=== PATIENT | male | born 1940 | race Caucasian/White ===

== ENCOUNTER 2018-07-19 23:40 | Inpatient (IN) | payer MEDICARE, BC ==
[~2018-07-19] VITALS: Ht 167.6 cm; Wt 92.1 kg
--- NOTE | 2018-07-20 00:20 | NUR ---
HARDIK FELIPE FROM [facility]. AAOX4. NAD, BREATHING EVEN AND UNLBAORED. AMBULATORY. C/O DEPRESSION. PT REPORTS HAVING OVERDOSE OF NORCO 2 WEEKS AGO. DENIES IVNITA HARPER. PT VOLUNTARILY WANT TO HAVE PSYCH EVAL. TO ER BED 2. AWAITING FOR MD AND PSYCH CONSULT.
--- NOTE | 2018-07-20 00:25 | NUR ---
CERTIFIED WELLNESS PROGRAM COORDINATOR AT BEDSIDE FOR BLOOD DRAW
[2018-07-20 00:30] LABS: BASOPHILS # (AUTO) 0.1 /CMM (0.0-0.2); BASOPHILS % (AUTO) 0.6 % (0.0-2.0); EOSINOPHILS % (AUTO) 1.2 % (0.0-6.0); HEMATOCRIT 35 % (39-51); HEMOGLOBIN 11.9 g/dL (13.5-17.5); LYMPHOCYTES # (AUTO) 3.2 /CMM (0.8-4.8); LYMPHOCYTES % (AUTO) 25.9 % (20.0-44.0); MEAN CORPUSCULAR HGB CONC 34 g/dl (31.0-36.0); MEAN CORPUSCULAR VOLUME 91 fL (80-96); MONOCYTES # (AUTO) 0.7 /CMM (0.1-1.30); NEUTROPHILS # (AUTO) 8.1 /CMM (1.8-8.9); NEUTROPHILS % (AUTO) 66.3 % (43.0-81.0); PLATELET COUNT (AUTO) 423 /CMM (150-450); RED BLOOD CELL COUNT(AUTO) 3.89 MIL/uL (4.5-6.0); WHITE BLOOD COUNT (AUTO) 12.2 K/uL (4.3-11.0)
[2018-07-20 00:38] LABS: CARBON DIOXIDE 33 mmol/L (21-32); CHLORIDE 103 mmol/L (98-107); CREATININE 0.9 mg/dL (0.6-1.3); GLUCOSE 109 mg/dL (74-106); POTASSIUM 4.1 mmol/L (3.5-5.1); SODIUM SERUM 141 mmol/L (136-145); UREA NITROGEN, BLOOD 29 mg/dL (7-18)
[2018-07-20 00:51] LABS: ACETAMINOPHEN 0 ug/ml (10-30); ALANINE AMINOTRANSFERASE 21 U/L (12-78); ALBUMIN 3.6 g/dL (3.4-5.0); ALCOHOL, BLOOD < 3 mg/dL (0-0); ALKALINE PHOSPHATASE 98 U/L (46-116); ASPARTATE AMINOTRANSFERASE 10 U/L (15-37); BILIRUBIN,DIRECT 0.1 mg/dL (0.0-0.2); BILIRUBIN,TOTAL 0.3 mg/dL (0.2-1.0); SALICYLATE 2.3 mg/dL (2.8-20.0); TOTAL PROTEIN, SERUM 7.1 g/dL (6.4-8.2)
--- NOTE | 2018-07-20 01:46 | NUR ---
REPORT GIVEN TO ALAN MENDENHALL. PT GOING TO [facility].
--- NOTE | 2018-07-20 01:52 | NUR ---
PT BEING TRANSPORT TO [facility] G[facility] WITH EMT. PT IS INSTABLE CONDITION FOR TRANSPORT.
--- NOTE | 2018-07-20 01:55 | NUR ---
GPS-AUTO APPRAISER NOTES: ADMITTED A 78-YR OLD, MALE, FROM [facility]. ADMITTED ON VOLUNTARY STATUS. UPON FACE TO FACE EVALUATION PATIENT PRESENTS ALERT AND ORIENTED X3, DEPRESSED, AND FLAT AFFECT. PATIENT AMBULATES INDEPENDENTLY. DENIES SI/HI OR HALLUCINATIONS AT THIS TIME. IN NO APPARENT DISTRESS NOTED. NO S/SX OF PAIN OR DISCOMFORT NOTED. PT. IS UNDER THE PSYCHIATRIC CARE OF DR. SERVIN ORDERS OBTAINED, AND UNDER THE MEDICAL CARE OF DR. SINGH, NOTIFIED OF PT'S ADMISSION AND MEDS TO BE RECONCILED. SKIN AND BODY ASSESSMENT DONE. SKIN IS INTACT. BELONGINGS AND CONTRABAND CHECKED AND RECORDED. PATIENT'S RIGHTS DISCUSSED, GUIDE TO PRESCRIPTION MEDS HANDBOOK PROVIDED. BED LOCKED AND PLACED ON LOWEST POSITION TO MAINTAIN SAFETY. FALL PRECAUTIONS IMPLEMENTED. WILL CONTINUE TO MONITOR FOR MOOD, SAFETY AND BEHAVIOR.
[2018-07-20 02:00] VITALS: BP 150/70
[2018-07-20] MEDS ORDERED: ACETAMINOPHEN 325 MG TABLET PO PRN (03:00)
[2018-07-20] MEDS ORDERED: MAG HYDROX/AL HYDROX/SIMETH 30 ML UDC PO PRN (03:00)
[2018-07-20] MEDS ORDERED: MAGNESIUM HYDROXIDE 30 ML UDC PO PRN (03:00)
[2018-07-20] MEDS ORDERED: MIRT15TA7 PO (03:25)
[2018-07-20] MEDS ORDERED: ASPI-1169 PO (03:25)
[2018-07-20] MEDS ORDERED: AMLO10TA7 PO (03:25)
[2018-07-20] MEDS ORDERED: ATOR10TA PO (03:25)
[2018-07-20] MEDS ORDERED: ATOR20TA PO (03:25)
[2018-07-20] MEDS ORDERED: DULO30CA2 PO (03:25)
[2018-07-20] MEDS ORDERED: QUET100T PO (03:25)
[2018-07-20] MEDS ORDERED: BUDE0.5A4 IH (04:58)
[2018-07-20] MEDS ORDERED: CLON0.1T PO (04:58)
[2018-07-20] MEDS ORDERED: DOCU100C36 PO (04:58)
[2018-07-20] MEDS ORDERED: IPRA3AMP23 IH (04:58)
[2018-07-20] MEDS ORDERED: METO-357 PO (04:58)
[2018-07-20] MEDS ORDERED: DIPH50CA4 PO (04:58)
[2018-07-20] MEDS ORDERED: CHOL50002 PO (04:58)
[2018-07-20] MEDS ORDERED: CLOP75TA15 PO (04:58)
[2018-07-20] MEDS ORDERED: TRAZ-182 PO (04:58)
[2018-07-20] MEDS ORDERED: BISA10SU8 RC (04:58)
[2018-07-20] MEDS ORDERED: ALBU1.257 IH (04:58)
[2018-07-20] MEDS ORDERED: CITA20SO PO (04:58)
[2018-07-20] MEDS ORDERED: OLAN10TA3 PO (04:58)
[2018-07-20] MEDS ORDERED: LOSA25TA27 PO (04:58)
--- NOTE | 2018-07-20 05:10 | NUR ---
RN-NOTE: CALLED TO EPIC GROUP SPOKE WITH DR. SINGH, SHE STATED MEDICATION RECONCILIATION TO BE DONE THIS MORNING. DR. SINGH MADE AWARE OF PT'S DIAGNOSIS ACUTE VIRAL UPPER RESPIRATORY INFECTION, RESPIRATORY PCR PANEL + CORONAVIRUS MD STATED NO TREATMENT TO BE DONE. PT. NOTED O2 SATURATION RANGING FROM 90-91% WITH ORDER OF O2 THERAPY @2LPM VIA NC PRN TO KEEP O2 LEVEL >92%. AND INCENTIVE SPIROMETER AT BEDSIDE. ALL ORDERS NOTED AND CARRIED OUT. PATIENT HAS NO S/SX OF ACUTE RESPIRATORY DISTRESS NOTED. WILL ENDORSED TO DAY SHIFT NURSE FOR CONTINUITY OF CARE. Addendum: 07/20/18 at 0723 by NELL DAY RN ENDORSED TO DAY SHIFT NURSE TO NOTIFY FAMILY (PT'S ALAINA) REGARDING PT'S ADMISSION.
[2018-07-20 08:00] VITALS: BP 130/57
--- NOTE | 2018-07-20 11:08 | NUR ---
CALLED ALAINA WEEMS () AT [phone] AND WAS NOTIFIED ABOUT PTS. ADMISSION.
[2018-07-20] MEDS: LORAZEPAM 0.5 MG TABLET PO PRN (11:26)
[2018-07-20] MEDS ORDERED: CLONIDINE HCL 0.1 MG TABLET PO PRN (14:00)
[2018-07-20] MEDS ORDERED: BISACODYL SUPP (10 MG) 10 MG/SUPP.RECT SUPP.RECT RC PRN (14:00)
[2018-07-20] MEDS ORDERED: ALBUTEROL FS 2.5 MG/0.5 ML VIAL.NEB NEB PRN (14:00)
[2018-07-20] MEDS: DIVALPROEX SODIUM 125 MG CAP.SPRINK PO SCH ×2 (14:15→20:22)
[2018-07-20] MEDS ORDERED: Medication Not On Formulary EA (Ipratropium/Albuterol Sulfate (Duoneb 2.5-0.5 Mg/3 Ml So IH SCH (15:30)
[2018-07-20 16:12] VITALS: BP_SYST 116; BP_SYST 123; BP_DIAS 53; BP_DIAS 55
--- NOTE | 2018-07-20 16:26 | NUR ---
CHADD called the pts , Arlin Page ([phone]), and discussed the pts treatment plan and initial discharge plan to return to his home with a program.
--- NOTE | 2018-07-20 16:27 | NUR ---
Initial Discharge Plan: Pt currently resides at his home located at [address] [place] [address]; [phone]). Pt lives with his , Arlin Page ([phone]). Per pt, he would like to return to his home. SW will work with the MD and the pt regarding appropriate discharge planning. SW will form a safe and proper plan.
[2018-07-20] MEDS: IPRATROPIUM NEB FS 0.5 MG/2.5 ML AMPUL.NEB NEB SCH ×2 (16:48→19:30)
[2018-07-20] MEDS: ALBUTEROL FS 2.5 MG/0.5 ML VIAL.NEB NEB SCH ×2 (16:48→19:30)
[2018-07-20] MEDS: DOCUSATE SODIUM 100 MG CAPSULE PO SCH (17:00)
[2018-07-20 20:00] VITALS: BP 142/67
[2018-07-20] MEDS ORDERED: OLANZAPINE 2.5 MG TABLET PO SCH (20:00)
[2018-07-20] MEDS: LOSARTAN POTASSIUM 25 MG TABLET PO SCH (20:22)
[2018-07-20] MEDS: TEMAZEPAM 7.5 MG CAPSULE PO PRN (20:23)
[2018-07-21 07:46] LABS: BASOPHILS % (AUTO) 0.3 % (0.0-2.0); EOSINOPHILS % (AUTO) 2.2 % (0.0-6.0); HEMATOCRIT 32 % (39-51); HEMOGLOBIN 11.2 g/dL (13.5-17.5); LYMPHOCYTES # (AUTO) 2.2 /CMM (0.8-4.8); LYMPHOCYTES % (AUTO) 23.9 % (20.0-44.0); MEAN CORPUSCULAR HGB CONC 35 g/dl (31.0-36.0); MEAN CORPUSCULAR VOLUME 90 fL (80-96); MONOCYTES # (AUTO) 0.8 /CMM (0.1-1.30); MONOCYTES % (AUTO) 8.5 % (2.0-12.0); NEUTROPHILS # (AUTO) 6.1 /CMM (1.8-8.9); NEUTROPHILS % (AUTO) 65.1 % (43.0-81.0); PLATELET COUNT (AUTO) 385 /CMM (150-450); RED BLOOD CELL COUNT(AUTO) 3.61 MIL/uL (4.5-6.0); WHITE BLOOD COUNT (AUTO) 9.4 K/uL (4.3-11.0)
[2018-07-21 07:47] LABS: ALANINE AMINOTRANSFERASE 16 U/L (12-78); ALKALINE PHOSPHATASE 90 U/L (46-116); ASPARTATE AMINOTRANSFERASE 9 U/L (15-37); BILIRUBIN,TOTAL 0.4 mg/dL (0.2-1.0); CALCIUM, SERUM 9.3 mg/dL (8.5-10.1); CARBON DIOXIDE 28 mmol/L (21-32); CHLORIDE 105 mmol/L (98-107); CREATININE 0.8 mg/dL (0.6-1.3); GLUCOSE 116 mg/dL (74-106); MAGNESIUM 2.3 mg/dL (1.8-2.4); PHOSPHORUS 3.9 mg/dL (2.5-4.9); POTASSIUM 4.1 mmol/L (3.5-5.1); SODIUM SERUM 140 mmol/L (136-145); TOTAL PROTEIN, SERUM 6.1 g/dL (6.4-8.2); UREA NITROGEN, BLOOD 25 mg/dL (7-18)
[2018-07-21 07:51] LABS: CHOLESTEROL 120 mg/dL (<200); HDL CHOLESTEROL 46 mg/dL (40-60); LDL 65 mg/dL (0-99); THYROID STIMULATING HORMONE 1.777 uIU/mL (0.358-3.74); TRIGLYCERIDES 56 mg/dL (30-150)
[2018-07-21 08:00] VITALS: BP 117/73
[2018-07-21] MEDS: ALBUTEROL FS 2.5 MG/0.5 ML VIAL.NEB NEB SCH ×4 (08:25→20:32)
[2018-07-21] MEDS: IPRATROPIUM NEB FS 0.5 MG/2.5 ML AMPUL.NEB NEB SCH ×4 (08:28→20:32)
[2018-07-21] MEDS: CHOLECALCIFEROL 1,000 UNIT TABLET (VIT D3) PO SCH (08:41)
[2018-07-21] MEDS: DOCUSATE SODIUM 100 MG CAPSULE PO SCH ×2 (08:41→17:43)
[2018-07-21] MEDS: ASPIRIN 81 MG TAB.CHEW PO SCH (08:41)
[2018-07-21] MEDS: CLOPIDOGREL BISULFATE 75 MG TABLET PO SCH (08:41)
[2018-07-21] MEDS: DIVALPROEX SODIUM 125 MG CAP.SPRINK PO SCH ×2 (08:41→21:18)
[2018-07-21] MEDS: LOSARTAN POTASSIUM 25 MG TABLET PO SCH ×2 (08:42→21:00)
--- NOTE | 2018-07-21 09:20 | NUR ---
GROUP NOTE: Group was facilitated on 07/20/18 at 2:00pm topic was "discharge planning" S: "This is the first time I come to a hospital like this I wasn't feeling well I think my medication had something to do with it. I have good support at home and I want to return home once I feel I'm better." O: Pt was anxious but was cooperative and maintained good eye contact. Pt asked appropriate questions pertaining to his hold and length of stay. A: Pt expressed concern for his current mental state and gained awareness regarding his 5150 hold. P: pt will continue milieu treatment and medication stabilization.
--- NOTE | 2018-07-21 13:12 | NUR ---
NO SOB, NOTED, PER PT. HE DOESN'T NEED OXYGEN. DR. SERVIN ORDERED TO D/C 1:1
[2018-07-21 14:01] LABS: APPEARANCE,URINE SL CLOUDY (CLEAR); BILIRUBIN,URINE NEGATIVE (NEGATIVE); BLOOD, URINE NEGATIVE Ery/uL (NEGATIVE); COLOR,URINE YELLOW (YELLOW); KETONES,URINE NEGATIVE (NEGATIVE); LEUKOCYTE ESTERASE ,URINE NEGATIVE (NEGATIVE); NITRITE, URINE NEGATIVE (NEGATIVE); PROTEIN,URINE NEGATIVE (NEGATIVE); UGLUCOSE NEGATIVE (NEGATIVE); UROBILINOGEN,URINE 0.2 EU/dL (0.2)
--- NOTE | 2018-07-21 14:20 | NUR ---
Group note: Pt attended a group session on 07/21/18 at 1:30PM discussing their goals for when they are in the hospital and for once they are discharged. S: Pt stated, I have tried many different psychiatrists and programs to find the right medications to assist with my chemical imbalance. I know that this time I attempted suicide because I was not getting the help that I needed and I did not know what else to do. My son has been a great support for me and has been receptive. O: Pt was present during the group session and was engaged. Pt appeared to be in a depressed mood and presented with a calm affect. Pt maintained appropriate eye contact and had an appropriate tone. A: Pt expressed that he has difficulty reaching out for help when he feels like he is struggling with his depression. Pt gained the insight that he does not have to ask his for help since she is not receptive and that he could reach out to his son instead because he is more understanding. Pt was encouraged to speak out about his medications if they stop working as well so that he can gain help before the situation worsens. P: Pt will continue milieu treatment and medication stabilization.
--- NOTE | 2018-07-21 14:33 | NUR ---
Group note: Pt attended a group session on 07/21/18 at 1:30PM discussing their goals for when they are in the hospital and for once they are discharged. S: Pt stated, I have never set any goals for myself because I cannot achieve them. I just want to go to home and go back to my life. O: Pt was present during the group session and was engaged. Pt appeared to be in a depressed mood and presented with an agitated affect. Pt maintained appropriate eye contact and had a very sarcastic and apathetic tone. A: Pt expressed that he feels as if his stay in the hospital was not helpful and that he is just doing what he thinks he needs to do to get discharged back to his home. Pt gained the insight that his medications are important and that he needs to be able to talk to his and use her for support. P: Pt will continue milieu treatment and medication stabilization. Addendum: 07/21/18 at 1433 by ALEXANDRIA FLORENTINO WRONG PT.
--- NOTE | 2018-07-21 15:05 | NUR ---
ua sent as per orders.
[2018-07-21] MEDS: DULOXETINE HCL 30 MG CAPSULE.DR PO SCH (15:09)
[2018-07-21] MEDS: AMLODIPINE BESYLATE 10 MG TABLET PO SCH (15:22)
[2018-07-21] MEDS: METOPROLOL SUCCINATE 50 MG TAB.SR.24H PO SCH (15:26)
--- NOTE | 2018-07-21 15:33 | NUR ---
bp meds held in am as bp on the low side,given now as elevated.
--- NOTE | 2018-07-21 15:35 | NUR ---
SW called the pts , Arlin Page ([phone]), and informed her that the pt has been complaint with his treatment in the sense that he has been participating in groups and that he takes his medications. It was discussed that the pts plan is to return home but with an outpatient program for additional support. Pts became emotional and stated that she would like to discuss his care after the weekend. CHADD stated that she would call her back on Tuesday.
[2018-07-21] MEDS: LORAZEPAM 0.5 MG TABLET PO PRN (15:53)
--- NOTE | 2018-07-21 15:58 | NUR ---
medicated for nervousness with ativan.
[2018-07-21 16:00] VITALS: BP 161/73
--- NOTE | 2018-07-21 16:37 | NUR ---
oxygen discontinued,sitter discontinued.
[2018-07-21 20:00] VITALS: BP 112/56
[2018-07-21] MEDS: OLANZAPINE 2.5 MG TABLET PO SCH (20:24)
[2018-07-21] MEDS: ATORVASTATIN 10 MG TABLET PO SCH (21:19)
[2018-07-21] MEDS: TEMAZEPAM 7.5 MG CAPSULE PO PRN (21:20)
[2018-07-22] MEDS: ALBUTEROL FS 2.5 MG/0.5 ML VIAL.NEB NEB SCH ×4 (07:35→19:30)
[2018-07-22] MEDS: IPRATROPIUM NEB FS 0.5 MG/2.5 ML AMPUL.NEB NEB SCH ×4 (07:35→19:30)
[2018-07-22 08:00] VITALS: BP 150/68
[2018-07-22] MEDS: DOCUSATE SODIUM 100 MG CAPSULE PO SCH ×2 (12:09→17:26)
[2018-07-22] MEDS: DIVALPROEX SODIUM 125 MG CAP.SPRINK PO SCH ×2 (12:13→20:37)
[2018-07-22] MEDS: AMLODIPINE BESYLATE 10 MG TABLET PO SCH (12:13)
[2018-07-22] MEDS: METOPROLOL SUCCINATE 50 MG TAB.SR.24H PO SCH (12:14)
[2018-07-22] MEDS: ASPIRIN 81 MG TAB.CHEW PO SCH (12:14)
[2018-07-22] MEDS: CHOLECALCIFEROL 1,000 UNIT TABLET (VIT D3) PO SCH (12:16)
[2018-07-22] MEDS: CLOPIDOGREL BISULFATE 75 MG TABLET PO SCH (12:17)
[2018-07-22] MEDS: LOSARTAN POTASSIUM 25 MG TABLET PO SCH ×2 (12:17→20:38)
[2018-07-22] MEDS: DULOXETINE HCL 30 MG CAPSULE.DR PO SCH (12:18)
[2018-07-22 16:00] VITALS: BP 135/65
[2018-07-22 19:39] VITALS: BP 129/64
[2018-07-22] MEDS: OLANZAPINE 2.5 MG TABLET PO SCH (20:37)
[2018-07-22] MEDS: TEMAZEPAM 7.5 MG CAPSULE PO PRN (20:41)
[2018-07-22] MEDS: ATORVASTATIN 10 MG TABLET PO SCH (21:41)
[2018-07-23] MEDS: IPRATROPIUM NEB FS 0.5 MG/2.5 ML AMPUL.NEB NEB SCH ×4 (07:35→19:30)
[2018-07-23] MEDS: ALBUTEROL FS 2.5 MG/0.5 ML VIAL.NEB NEB SCH ×4 (07:35→19:30)
[2018-07-23 08:00] VITALS: BP 146/65
[2018-07-23] MEDS: DOCUSATE SODIUM 100 MG CAPSULE PO SCH ×2 (09:00→17:03)
[2018-07-23] MEDS: ASPIRIN 81 MG TAB.CHEW PO SCH (09:23)
[2018-07-23] MEDS: CLOPIDOGREL BISULFATE 75 MG TABLET PO SCH (09:24)
[2018-07-23] MEDS: CHOLECALCIFEROL 1,000 UNIT TABLET (VIT D3) PO SCH (09:24)
[2018-07-23] MEDS: DIVALPROEX SODIUM 125 MG CAP.SPRINK PO SCH ×2 (09:24→20:29)
[2018-07-23] MEDS: AMLODIPINE BESYLATE 10 MG TABLET PO SCH (09:24)
[2018-07-23] MEDS: LOSARTAN POTASSIUM 25 MG TABLET PO SCH ×2 (09:25→20:30)
[2018-07-23] MEDS: METOPROLOL SUCCINATE 50 MG TAB.SR.24H PO SCH (09:25)
[2018-07-23] MEDS: DULOXETINE HCL 30 MG CAPSULE.DR PO SCH (12:41)
[2018-07-23 16:00] VITALS: BP 159/69
[2018-07-23 20:00] VITALS: BP 111/54
[2018-07-23] MEDS: OLANZAPINE 2.5 MG TABLET PO SCH (20:25)
[2018-07-23] MEDS: TEMAZEPAM 7.5 MG CAPSULE PO PRN (20:27)
[2018-07-23] MEDS: ATORVASTATIN 10 MG TABLET PO SCH (21:07)
[2018-07-24] MEDS: IPRATROPIUM NEB FS 0.5 MG/2.5 ML AMPUL.NEB NEB SCH ×4 (07:35→19:30)
[2018-07-24] MEDS: ALBUTEROL FS 2.5 MG/0.5 ML VIAL.NEB NEB SCH ×4 (07:35→19:30)
[2018-07-24 08:00] VITALS: BP 134/58
[2018-07-24] MEDS: CHOLECALCIFEROL 1,000 UNIT TABLET (VIT D3) PO SCH (10:06)
[2018-07-24] MEDS: LOSARTAN POTASSIUM 25 MG TABLET PO SCH ×2 (10:07→21:03)
[2018-07-24] MEDS: DOCUSATE SODIUM 100 MG CAPSULE PO SCH ×2 (10:07→18:30)
[2018-07-24] MEDS: AMLODIPINE BESYLATE 10 MG TABLET PO SCH (10:07)
[2018-07-24] MEDS: CLOPIDOGREL BISULFATE 75 MG TABLET PO SCH (10:07)
[2018-07-24] MEDS: ASPIRIN 81 MG TAB.CHEW PO SCH (10:08)
[2018-07-24] MEDS: METOPROLOL SUCCINATE 50 MG TAB.SR.24H PO SCH (10:08)
[2018-07-24] MEDS: DIVALPROEX SODIUM 125 MG CAP.SPRINK PO SCH ×3 (10:08→18:30)
--- NOTE | 2018-07-24 10:33 | NUR ---
Arlin Page ([phone]), pt's , called the SW and stated that she does not think that the pt can come home after just a few days in the hospital because previously, after he would come home following a hospitalization, pt would continue taking his medications but would realize that it is not an appropriate one and would begin having suicidal ideation. Pts stated that she wants the MD to put the pt on a 5150 hold and keep him until he is stable on his medications.
--- NOTE | 2018-07-24 10:48 | NUR ---
CHADD called the pt's son, Pavan ([phone]), and informed him about the plan to refer the pt to a treatment center around their area. He stated that would be beneficial for the pt and that he would like the pt to stay longer. He also stated that he would like to speak to the pts psychiatrist.
[2018-07-24 16:00] VITALS: BP 143/81
--- NOTE | 2018-07-24 16:25 | NUR ---
Group note: Pt attended a group session on 07/24/18 at 3PM discussing depression and how it has impacted their life. S: Pt stated, I believe that there are two kinds of depression. There is one that is a chemical imbalance and the other time is the environmental. I believe that mine is the chemical imbalance type. I have been feeling a lot better than when I was first admitted to the hospital because I was so anxious at that time. O: Pt was present during the group session and was engaged. Pt appeared to be in a depressed mood and presented with a calm affect. Pt maintained appropriate eye contact and had an appropriate tone of voice. Pt appeared to be fixated on his discharge and interrupted a group member to ask his SW when she will talk to his psychiatrist. A: Pt expressed that believes that his depression was not caused by any events in his life that made him feel upset. Pt expressed that he has had a good life and that the reason for his depression is the imbalance. Pt expressed that his needs are only to become stable on his medications. P: Pt will continue milieu treatment and medication stabilization.
[2018-07-24 19:46] VITALS: BP 142/72
[2018-07-24] MEDS ORDERED: OLANZAPINE 2.5 MG TABLET PO SCH (20:00)
[2018-07-24] MEDS: ATORVASTATIN 10 MG TABLET PO SCH (21:02)
[2018-07-24] MEDS: TEMAZEPAM 7.5 MG CAPSULE PO PRN (21:05)
[2018-07-25 08:00] VITALS: BP 128/50
[2018-07-25] MEDS: DIVALPROEX SODIUM 125 MG CAP.SPRINK PO SCH ×3 (08:45→16:51)
[2018-07-25] MEDS: DOCUSATE SODIUM 100 MG CAPSULE PO SCH ×2 (08:45→16:51)
[2018-07-25] MEDS: CLOPIDOGREL BISULFATE 75 MG TABLET PO SCH (08:45)
[2018-07-25] MEDS: CHOLECALCIFEROL 1,000 UNIT TABLET (VIT D3) PO SCH (08:45)
[2018-07-25] MEDS: ASPIRIN 81 MG TAB.CHEW PO SCH (08:49)
[2018-07-25] MEDS: AMLODIPINE BESYLATE 10 MG TABLET PO SCH (08:49)
[2018-07-25] MEDS: METOPROLOL SUCCINATE 50 MG TAB.SR.24H PO SCH (08:49)
[2018-07-25] MEDS: LOSARTAN POTASSIUM 25 MG TABLET PO SCH ×2 (08:49→21:00)
[2018-07-25 08:50] VITALS: BP 132/61
[2018-07-25] MEDS: IPRATROPIUM NEB FS 0.5 MG/2.5 ML AMPUL.NEB NEB SCH ×4 (08:57→19:30)
[2018-07-25] MEDS: ALBUTEROL FS 2.5 MG/0.5 ML VIAL.NEB NEB SCH ×4 (08:57→19:30)
--- NOTE | 2018-07-25 10:52 | NUR ---
UR Note: CHADD faxed a clinical to [facility] attention to Trey to the fax number: [phone].
--- NOTE | 2018-07-25 12:12 | NUR ---
UR Note: CHADD called Trey ([phone]) at [facility] and inquired about whether or not [place] would have to authorize a SNF placement and he said that they do not so any facility that accepts Medicare is appropriate.
[2018-07-25 16:00] VITALS: BP 99/43
--- NOTE | 2018-07-25 16:47 | NUR ---
Group note: Pt attended a group session on 07/25/18 at 3PM discussing support systems and their impact on their lives. S: Pt stated, My and I have always taken care of each other. When you get , you sign up for a 24/7 support person. It has been really nice having her in my life especially as I get older because my issues just seem to be increasing. My son has also been amazing and I have really bonded with him throughout this hospital stay. He has made me a priority and has provided me with a lot of support. O: Pt was present during the group session and was engaged. Pt appeared to be in a euthymic mood and presented with a calm affect. Pt maintained appropriate eye contact and had an appropriate tone of voice. A: Pt expressed that he understands that his family have always been there for him and have supported him with everything that he has gone through. Pt came to the awareness that he would not have such a wonderful life with them and that he has been blessed with them. Pt realized that he needs to be more appreciative of them and also more honest with them. P: Pt will continue milieu treatment and medication stabilization.
[2018-07-25 20:22] VITALS: BP 97/53
[2018-07-25] MEDS: OLANZAPINE 2.5 MG TABLET PO SCH (20:31)
[2018-07-25] MEDS: ATORVASTATIN 10 MG TABLET PO SCH (21:21)
[2018-07-25 23:00] VITALS: BP 105/62
[2018-07-26] MEDS: ALBUTEROL FS 2.5 MG/0.5 ML VIAL.NEB NEB SCH ×4 (07:35→19:30)
[2018-07-26] MEDS: IPRATROPIUM NEB FS 0.5 MG/2.5 ML AMPUL.NEB NEB SCH ×4 (07:35→19:30)
[2018-07-26 08:00] VITALS: BP 140/72
[2018-07-26] MEDS: CHOLECALCIFEROL 1,000 UNIT TABLET (VIT D3) PO SCH (08:42)
[2018-07-26] MEDS: METOPROLOL SUCCINATE 50 MG TAB.SR.24H PO SCH (08:43)
[2018-07-26] MEDS: DOCUSATE SODIUM 100 MG CAPSULE PO SCH ×4 (08:43→16:36)
[2018-07-26] MEDS: ASPIRIN 81 MG TAB.CHEW PO SCH (08:43)
[2018-07-26] MEDS: AMLODIPINE BESYLATE 10 MG TABLET PO SCH (08:43)
[2018-07-26] MEDS: CLOPIDOGREL BISULFATE 75 MG TABLET PO SCH (08:43)
[2018-07-26] MEDS: DIVALPROEX SODIUM 125 MG CAP.SPRINK PO SCH ×3 (08:44→16:35)
[2018-07-26] MEDS: LOSARTAN POTASSIUM 25 MG TABLET PO SCH ×2 (08:44→21:12)
--- NOTE | 2018-07-26 13:18 | NUR ---
UR Note: CHADD faxed a clinical to [facility] attention to Trey to the fax number: [phone].
--- NOTE | 2018-07-26 13:36 | NUR ---
CHADD called the pt's son, Pavan ([phone]), and informed him that the recommendation for the pt is to be admitted to a fdc facility for further stabilization. CHADD stated that the pts psychiatrist is recommending [facility] [place] and that the pts psychiatrist would continue to see the pt at that facility if he gets accepted. The pts son stated that he accepts this plan.
--- NOTE | 2018-07-26 13:40 | NUR ---
CHADD wesley a referral to [facility] with attention to Sima to the fax number: [phone]. Addendum: 07/26/18 at 1341 by ALEXANDRIA FLORENTINO FAXED
--- NOTE | 2018-07-26 14:45 | NUR ---
GROUP NOTE: SW prompted pt to attend group therapy. Pt was asleep and did not wake up when SW called his name.
[2018-07-26 16:00] VITALS: BP 141/66
[2018-07-26 20:00] VITALS: BP 133/56
[2018-07-26] MEDS: OLANZAPINE 2.5 MG TABLET PO SCH (20:18)
[2018-07-26] MEDS: ATORVASTATIN 10 MG TABLET PO SCH (21:12)
[2018-07-27] MEDS: IPRATROPIUM NEB FS 0.5 MG/2.5 ML AMPUL.NEB NEB SCH ×4 (07:35→20:40)
[2018-07-27] MEDS: ALBUTEROL FS 2.5 MG/0.5 ML VIAL.NEB NEB SCH ×4 (07:35→20:41)
[2018-07-27 08:00] VITALS: BP 137/61
[2018-07-27] MEDS: ASPIRIN 81 MG TAB.CHEW PO SCH (08:22)
[2018-07-27] MEDS: DOCUSATE SODIUM 100 MG CAPSULE PO SCH ×2 (08:22→17:29)
[2018-07-27] MEDS: CHOLECALCIFEROL 1,000 UNIT TABLET (VIT D3) PO SCH (08:22)
[2018-07-27] MEDS: DIVALPROEX SODIUM 125 MG CAP.SPRINK PO SCH ×3 (08:23→17:29)
[2018-07-27] MEDS: LOSARTAN POTASSIUM 25 MG TABLET PO SCH ×2 (08:23→21:03)
[2018-07-27] MEDS: AMLODIPINE BESYLATE 10 MG TABLET PO SCH (08:23)
[2018-07-27] MEDS: METOPROLOL SUCCINATE 50 MG TAB.SR.24H PO SCH (08:24)
[2018-07-27] MEDS: CLOPIDOGREL BISULFATE 75 MG TABLET PO SCH (08:24)
--- NOTE | 2018-07-27 11:59 | NUR ---
SW called the pt's son, Pavan ([phone]), and informed him that the pt was accepted to [facility] and that the pts psychiatrist would inform the SW when she thinks the pt is stable enough to be discharged. SW informed him that when that time comes she would call him and let him know. CHADD also explained the reasoning behind a SNF placement for the pt and the son stated that he understands and agrees to the placement.
[2018-07-27 16:00] VITALS: BP 152/54
--- NOTE | 2018-07-27 16:30 | NUR ---
UR Note: CHADD faxed a clinical to [facility] attention to Trey to the fax number: [phone].
--- NOTE | 2018-07-27 16:30 | NUR ---
Group Note: Pt attended a group session on 07/27/18 at 2PM discussing goals for when they are in the hospital and goals for once they are discharged. S: Pt stated, My goal is to work on my rehab and my medications when I get discharged to the nursing facility. That way I can reach my main goal of getting back to my original life. I want to go back to living with my and having my son around. O: Pt was present during the group session and was engaged. Pt appeared to be in a depressed mood and presented with a calm affect. Pt maintained appropriate eye contact and had an appropriate tone of voice. A: Pt expressed that he understands that he has to take this admission step by step to get back to his home. Pt understood that he has been hospitalized many times due to his medications not being effective and therefore to prevent another admission, he must spend more time with this one to become stable. P: Pt will continue milieu treatment and medication stabilization.
[2018-07-27 20:00] VITALS: BP 131/64
[2018-07-27] MEDS: DIVALPROEX SODIUM 250 MG TABLET.DR PO SCH (21:02)
[2018-07-27] MEDS: BENZTROPINE MESYLATE (1 MG) 1 MG TABLET PO SCH (21:03)
[2018-07-27] MEDS: ATORVASTATIN 10 MG TABLET PO SCH (21:03)
[2018-07-27] MEDS: OLANZAPINE 2.5 MG TABLET PO SCH (21:04)
[2018-07-27] MEDS: TEMAZEPAM 7.5 MG CAPSULE PO PRN (21:04)
[2018-07-28] MEDS: ALBUTEROL FS 2.5 MG/0.5 ML VIAL.NEB NEB SCH ×4 (07:35→19:20)
[2018-07-28] MEDS: IPRATROPIUM NEB FS 0.5 MG/2.5 ML AMPUL.NEB NEB SCH ×4 (07:35→19:21)
[2018-07-28 08:00] VITALS: BP 98/63
[2018-07-28] MEDS: ASPIRIN 81 MG TAB.CHEW PO SCH (08:29)
[2018-07-28] MEDS: CHOLECALCIFEROL 1,000 UNIT TABLET (VIT D3) PO SCH (08:29)
[2018-07-28] MEDS: CLOPIDOGREL BISULFATE 75 MG TABLET PO SCH (08:29)
[2018-07-28] MEDS: DIVALPROEX SODIUM 125 MG CAP.SPRINK PO SCH ×2 (08:30→16:39)
[2018-07-28] MEDS: AMLODIPINE BESYLATE 10 MG TABLET PO SCH (08:31)
[2018-07-28] MEDS: LOSARTAN POTASSIUM 25 MG TABLET PO SCH ×2 (08:31→20:53)
[2018-07-28] MEDS: METOPROLOL SUCCINATE 50 MG TAB.SR.24H PO SCH (08:32)
[2018-07-28] MEDS: DOCUSATE SODIUM 100 MG CAPSULE PO SCH ×2 (08:33→16:39)
--- NOTE | 2018-07-28 11:30 | NUR ---
AMANDA SCHAFER IN THE UNIT WAS NOTIFIED THAT BP MEDS NOT GIVEN THIS MORNING FOR A LOW BP.
[2018-07-28] MEDS: LORAZEPAM 0.5 MG TABLET PO PRN (13:26)
--- NOTE | 2018-07-28 14:10 | NUR ---
SW conducted a substance abuse intervention with the pt regarding his overdose on his Vicodin prescription.
--- NOTE | 2018-07-28 14:56 | NUR ---
Group Note: Pt attended a group session on 07/28/18 at 2PM discussing stress management strategies for when they are in the hospital and for once they are discharged. S: Pt stated, I like to exercise when I am feeling stressed. I like to job and swim. Although I cant do that here at least I can walk around the halls as much as I want and that helps too. O: Pt was present during the group session and was engaged. Pt appeared to be have great interest in the topic. Pt had a depressed mood and presented with a calm affect. Pt maintained appropriate eye contact and had an appropriate tone of voice. A: Pt expressed that he understands that although he cant do the exercises he enjoys while being here, he has learned new stress reliving techniques, such as mindful meditation and grounding techniques that he will practice when he is feeling stressed. P: Pt will continue milieu treatment and medication stabilization.
--- NOTE | 2018-07-28 15:17 | NUR ---
UR Note: CHADD faxed a clinical to [facility] attention to Trey to the fax number: [phone].
[2018-07-28 16:00] VITALS: BP 106/69
--- NOTE | 2018-07-28 19:30 | NUR ---
GPS RN NOTE, RECEIVED PATIENT AWAKE AND IN BED, NO S/S OR COMPLAINTS OF PAIN AT THIS TIME. PATIENT IS DISPLAYING NO S/S OF APPARENT DISTRESS AT THIS TIME. PATIENT BREATHING IS UNLABORED WITH EQUAL RISE AND FALL OF THE CHEST. PATIENT IS ALERT AND ORIENTED X 3 ON ROOM AIR WITH A SPO2 OF 95 %. PATIENT IS MED COMPLAINT, DISORGANIZED, CONFUSED AT TIMES, COOPERATIVE, AND NEEDS REORIENTATION. PATIENT DENIES SUICIDE AND HOMICIDAL IDEATIONS AT THIS TIME. PATIENT ASSISTED WITH TURNING AND REPOSITIONING Q2HR AND PRN FOR COMFORT AND CIRCULATION. PATIENT HAS NO NEEDS AT THIS TIME. PATIENT EDUCATED ON THE USE OF THE CALL LYNCH. PATIENT BED SIDE RAILS ARE UP X 2 FOR SAFETY, BED IS LOCKED, AND LOW WILL CONTINUE TO MONITOR AND MAINTAIN SAFETY.
[2018-07-28 19:53] VITALS: BP 119/69
[2018-07-28] MEDS: OLANZAPINE 2.5 MG TABLET PO SCH (20:52)
[2018-07-28] MEDS: BENZTROPINE MESYLATE (1 MG) 1 MG TABLET PO SCH (20:52)
[2018-07-28] MEDS: ATORVASTATIN 10 MG TABLET PO SCH (21:44)
[2018-07-28] MEDS: DIVALPROEX SODIUM 250 MG TABLET.DR PO SCH (21:44)
[2018-07-29 08:00] VITALS: BP 120/72
[2018-07-29] MEDS: ALBUTEROL FS 2.5 MG/0.5 ML VIAL.NEB NEB SCH ×4 (08:37→19:20)
[2018-07-29] MEDS: IPRATROPIUM NEB FS 0.5 MG/2.5 ML AMPUL.NEB NEB SCH ×4 (08:37→19:20)
[2018-07-29] MEDS: ASPIRIN 81 MG TAB.CHEW PO SCH (08:46)
[2018-07-29] MEDS: METOPROLOL SUCCINATE 50 MG TAB.SR.24H PO SCH (08:46)
[2018-07-29] MEDS: CLOPIDOGREL BISULFATE 75 MG TABLET PO SCH (08:46)
[2018-07-29] MEDS: CHOLECALCIFEROL 1,000 UNIT TABLET (VIT D3) PO SCH (08:46)
[2018-07-29] MEDS: DIVALPROEX SODIUM 125 MG CAP.SPRINK PO SCH ×2 (08:46→16:21)
[2018-07-29] MEDS: DOCUSATE SODIUM 100 MG CAPSULE PO SCH ×2 (08:46→16:21)
[2018-07-29] MEDS: LOSARTAN POTASSIUM 25 MG TABLET PO SCH ×2 (08:47→21:19)
[2018-07-29] MEDS: AMLODIPINE BESYLATE 10 MG TABLET PO SCH (08:47)
[2018-07-29 16:00] VITALS: BP 126/63
[2018-07-29] MEDS: LORAZEPAM 0.5 MG TABLET PO PRN (16:32)
--- NOTE | 2018-07-29 16:33 | NUR ---
GPS/RN-NOTES PATIENT STATED" CAN I HAVE ATIVAN FOR MY ANXIETY". ATIVAN 0.5MG P.O GIVEN PRN ORDER. WILL CONT. MONITORING FOR SAFETY AND BEHAVIOR.
--- NOTE | 2018-07-29 17:30 | NUR ---
GPS/RN-NOTES PATIENT IN THE DAY ROOM WATCHING TV ,CALM,NO ACUTE DISTRESS NOTED.
[2018-07-29 19:35] VITALS: BP 126/74
[2018-07-29] MEDS: OLANZAPINE 2.5 MG TABLET PO SCH (20:36)
[2018-07-29] MEDS: BENZTROPINE MESYLATE (1 MG) 1 MG TABLET PO SCH (20:36)
[2018-07-29] MEDS: DIVALPROEX SODIUM 250 MG TABLET.DR PO SCH (21:19)
[2018-07-29] MEDS: ATORVASTATIN 10 MG TABLET PO SCH (21:20)
[2018-07-30 07:59] LABS: BASOPHILS % (AUTO) 0.2 % (0.0-2.0); EOSINOPHILS % (AUTO) 4.3 % (0.0-6.0); HEMATOCRIT 32 % (39-51); HEMOGLOBIN 11.1 g/dL (13.5-17.5); LYMPHOCYTES # (AUTO) 1.8 /CMM (0.8-4.8); MEAN CORPUSCULAR HGB CONC 35 g/dl (31.0-36.0); MEAN CORPUSCULAR VOLUME 89 fL (80-96); MONOCYTES # (AUTO) 0.5 /CMM (0.1-1.30); MONOCYTES % (AUTO) 9.2 % (2.0-12.0); NEUTROPHILS # (AUTO) 3.3 /CMM (1.8-8.9); NEUTROPHILS % (AUTO) 55.3 % (43.0-81.0); PLATELET COUNT (AUTO) 239 /CMM (150-450); WHITE BLOOD COUNT (AUTO) 5.9 K/uL (4.3-11.0)
[2018-07-30 08:00] VITALS: BP 104/61
[2018-07-30 08:10] LABS: VALPROIC ACID 39 ug/mL (50-100)
[2018-07-30 08:21] LABS: ALANINE AMINOTRANSFERASE 17 U/L (12-78); ALBUMIN 3.1 g/dL (3.4-5.0); ALKALINE PHOSPHATASE 89 U/L (46-116); ASPARTATE AMINOTRANSFERASE 9 U/L (15-37); BILIRUBIN,TOTAL 0.3 mg/dL (0.2-1.0); CALCIUM, SERUM 9.7 mg/dL (8.5-10.1); CARBON DIOXIDE 27 mmol/L (21-32); CHLORIDE 104 mmol/L (98-107); CREATININE 0.7 mg/dL (0.6-1.3); GLUCOSE 111 mg/dL (74-106); POTASSIUM 4.4 mmol/L (3.5-5.1); SODIUM SERUM 139 mmol/L (136-145); TOTAL PROTEIN, SERUM 6.4 g/dL (6.4-8.2); UREA NITROGEN, BLOOD 14 mg/dL (7-18)
[2018-07-30] MEDS: DIVALPROEX SODIUM 125 MG CAP.SPRINK PO SCH ×2 (08:46→17:15)
[2018-07-30] MEDS: DOCUSATE SODIUM 100 MG CAPSULE PO SCH ×2 (08:46→17:15)
[2018-07-30] MEDS: CLOPIDOGREL BISULFATE 75 MG TABLET PO SCH (08:46)
[2018-07-30] MEDS: CHOLECALCIFEROL 1,000 UNIT TABLET (VIT D3) PO SCH (08:46)
[2018-07-30] MEDS: ASPIRIN 81 MG TAB.CHEW PO SCH (08:47)
[2018-07-30] MEDS: LOSARTAN POTASSIUM 25 MG TABLET PO SCH ×2 (08:49→21:25)
[2018-07-30] MEDS: AMLODIPINE BESYLATE 10 MG TABLET PO SCH (08:50)
[2018-07-30] MEDS: METOPROLOL SUCCINATE 50 MG TAB.SR.24H PO SCH (08:50)
[2018-07-30] MEDS: ALBUTEROL FS 2.5 MG/0.5 ML VIAL.NEB NEB SCH ×4 (09:31→19:30)
[2018-07-30] MEDS: IPRATROPIUM NEB FS 0.5 MG/2.5 ML AMPUL.NEB NEB SCH ×4 (09:31→19:30)
[2018-07-30] MEDS: LORAZEPAM 0.5 MG TABLET PO PRN (15:30)
[2018-07-30 16:00] VITALS: BP 112/68
[2018-07-30 21:00] VITALS: BP 133/61
[2018-07-30] MEDS: ATORVASTATIN 10 MG TABLET PO SCH (21:24)
[2018-07-30] MEDS: BENZTROPINE MESYLATE (1 MG) 1 MG TABLET PO SCH (21:25)
[2018-07-30] MEDS: OLANZAPINE 2.5 MG TABLET PO SCH (21:26)
[2018-07-30] MEDS: DIVALPROEX SODIUM 250 MG TABLET.DR PO SCH (21:26)
[2018-07-31] MEDS: IPRATROPIUM NEB FS 0.5 MG/2.5 ML AMPUL.NEB NEB SCH ×2 (07:47→11:30)
[2018-07-31] MEDS: ALBUTEROL FS 2.5 MG/0.5 ML VIAL.NEB NEB SCH ×2 (07:47→11:30)
[2018-07-31 08:00] VITALS: BP 146/67
[2018-07-31] MEDS: CHOLECALCIFEROL 1,000 UNIT TABLET (VIT D3) PO SCH (09:27)
[2018-07-31] MEDS: DIVALPROEX SODIUM 125 MG CAP.SPRINK PO SCH ×2 (09:28→16:15)
[2018-07-31] MEDS: CLOPIDOGREL BISULFATE 75 MG TABLET PO SCH (09:28)
[2018-07-31] MEDS: ASPIRIN 81 MG TAB.CHEW PO SCH (09:29)
[2018-07-31] MEDS: DOCUSATE SODIUM 100 MG CAPSULE PO SCH ×2 (09:29→16:15)
[2018-07-31] MEDS: AMLODIPINE BESYLATE 10 MG TABLET PO SCH (09:29)
[2018-07-31] MEDS: METOPROLOL SUCCINATE 50 MG TAB.SR.24H PO SCH (09:30)
[2018-07-31] MEDS: LOSARTAN POTASSIUM 25 MG TABLET PO SCH (09:30)
--- NOTE | 2018-07-31 10:05 | NUR ---
P's son, Pavan ([phone]), called the SW and stated that he wanted an update regarding the pts discharge plan and the SW stated that we are aiming to discharge the pt the following day. He stated that he would like to speak to the pts psychiatrist whenever she is available and he also had some questions regarding home care once the pt can be discharged back home.
--- NOTE | 2018-07-31 13:07 | NUR ---
CHADD called the pt's son, Pavan ([phone]), and left him a voicemail stating that the pt is going to be discharged to [facility] today.
--- NOTE | 2018-07-31 15:18 | NUR ---
P's son, Pavan ([phone]), called the SW back and stated that he understands that the pt is being discharged today.
[2018-07-31 16:00] VITALS: BP 135/52
--- NOTE | 2018-07-31 16:06 | NUR ---
Pt was provided with three substance use referrals at the time of discharge that are listed below: [facility] [address] [place] [address] Tel. [facility] [address] [place] Provider Mental Health Treatment Tele-dermatology [facility] Services [facility] [place] [address] [place] [address] [facility] [address] [place] [address]
--- NOTE | 2018-07-31 16:06 | NUR ---
Discharge Note: Pt was discharged to [facility] ([facility]) located at [address] [place] [address]; ([phone]). Pt was transported via [facility] at 4PM. Pts son, Pavan ([phone]), was informed of the discharge. Upon discharge, pt denied both suicidal and homicidal ideation as well as auditory and visual hallucinations. Pt appeared to be in a euthymic mood and presented with a calm affect. Pt will be under the care of her psychiatrist, Dr. Way, located at [address], [place] [address]; , and her recreation facility attendant, Dr. Jeong, located at [address] [address] [place] [address]; . Addendum: 08/01/18 at 1321 by ALEXANDRIA FLORENTINO Pt will address his substance use with his psychiatrist and recreation facility attendant at the facility.
--- NOTE | 2018-07-31 16:06 | NUR ---
UR Note: CHADD faxed a discharge clinical to [facility] attention to Trey to the fax number: [phone].
--- NOTE | 2018-07-31 17:00 | NUR ---
PROOF PASSER NOTES PATIENT DISCHARGE AT THIS TIME GOING SNF. PATIENT A/O X4, STABLE REFUSED PAIN, MED COMPLAINT, V/S STABLE. PATIENT DENIED SI/HI/AVH AT THIS TIME. MED RECONCILIATION AND DISCHARGE ORDER REVIEWED AND EXPLAINED TO. REPORT GIVEN SNF RN ZA. RN VERBALIZED UNDERSTANDING. BELONGING GIVEN BACK TO THE PATIENT. PATIENT FAMILY AWARE OF PATIENT D/C PLANING. PATIENT SIGN PAPERWORK. PATIENT ANALYTICAL STRATEGIST BY AMBULANCE.PATIENT WILL FOLLOW SADDLE STITCHER DR AKBAR, AND PSYCHIATRIST DR SERVIN.
== END 2018-07-31 17:00 | DRG 885 ==
LOC: ER 23:49 → GPS 07-20 01:17
PROVIDERS: ADMIT Psychiatry & Neurology Psychosomatic Medicine; ATTEND Nurse Practitioner Acute Care
DX: F31.9 Bipolar disorder, unspecified (principal); E44.0 Moderate protein-calorie malnutrition; D72.829 Elevated white blood cell count, unspecified; D63.8 Anemia in other chronic diseases classified elsewhere; I10 Essential (primary) hypertension; I25.10 Atherosclerotic heart disease of native coronary artery without angina pectoris; Z95.1 Presence of aortocoronary bypass graft; Z91.5 Personal history of self-harm; E78.5 Hyperlipidemia, unspecified; E86.0 Dehydration; M19.90 Unspecified osteoarthritis, unspecified site; R73.9 Hyperglycemia, unspecified; E88.09 Other disorders of plasma-protein metabolism, not elsewhere classified; Z68.32 Body mass index [BMI] 32.0-32.9, adult
CPT/HCPCS: 36415; 80048-TC; 80053-TC; 80061-TC; 80076-TC; 80164-TC; 80305; 81000-TC; 83735-TC; 84100-TC; 84443-TC; 85025-TC; 87081-TC; G0480